=== PATIENT | female | born 1960 | race Caucasian/White ===

== ENCOUNTER 2018-09-26 14:40 | Emergency (ER) | payer SELFPAY ==
[2018-09-26] MEDS ORDERED: Lidocaine 1% (PF) 30 ML VIAL ONE (15:08)
[2018-09-26] MEDS ORDERED: Ketorolac Tromethamine 30 MG/ML VIAL ONE (15:08)
[2018-09-26] MEDS ORDERED: Adacel (T-DAP) 0.5 ML VIAL ONE (15:08)
--- NOTE | 2018-09-26 16:16 | RAD ---
RIGHT HAND THREE VIEWS: 09/26/18 HISTORY: Right hand injury. FINDINGS: Mild diffuse degenerative changes. No aggressive osseous erosions. Extensive soft tissue laceration a nd moderate amount of soft tissue gas are apparent at the webbing between the thumb and index finger. No metallic foreign bodies are apparent. IMPRESSION: Extensive soft tissue laceration. No metallic foreign bodies. POS: [facility]
== END 2018-09-26 16:09 | disposition home or self-care (01) ==
LOC: ERS 14:40
DX: S61.411A Laceration without foreign body of right hand, initial encounter (principal); W26.0XXA Contact with knife, initial encounter
CPT/HCPCS: 12002; 90471; 90715; 96372; J1885; J2001

== ENCOUNTER 2018-11-09 10:47 | Inpatient (IN) | payer SELFPAY ==
[~2018-11-09 10:47] MED LIST: Iopamidol 370 76% 100 ML VIAL ONE
[2018-11-09 12:30] LABS: Hemoglobin 11.1 g/dL (12.0-16.0); Mean Corpuscular HGB CONC 30.9 g/dL (32.0-36.0); Mean Corpuscular Hemoglobin 29.6 pg (27.0-31.0); Mean Corpuscular Volume 95.7 fL (78.0-98.0); Mean Platelet Volume 9.1 fL (7.4-10.4); Platelet Count 245 thou/uL (130-400); RBC Distribution Width 12.6 % (11.5-14.5); Red Blood Cell (RBC) Count 3.76 mill/uL (4.20-5.40); White Blood Cell (WBC) Count 15.9 thou/uL (4.8-10.8)
[2018-11-09 12:45] LABS: ALT (SGPT) 13 U/L (8-55); AST (SGOT) 12 U/L (5-34); Albumin 3.2 g/dL (3.5-5.0); Alkaline Phosphatase 168 U/L (40-150); Anion Gap 15 mmol/L (10-20); BUN (Urea Nitrogen) 13 mg/dL (9.8-20.1); Band 15 % (5-11); Bilirubin, Total 0.3 mg/dL (0.2-1.2); Calc. Creatinine Clearance 0 mL/min (70-130); Calcium 9.2 mg/dL (7.8-10.44); Carbon Dioxide 22 mmol/L (22-29); Chloride 102 mmol/L (98-107); Estimated GFR-MDRD 61; Globulin 4.2 g/dL (2.4-3.5); Glucose 91 mg/dL (70-105); Lipase Less than 4 U/L (8-78); Lymphocytes 6 % (21-51); MDiff Complete? YES; Monocytes 8 % (0-10); Neutrophil 70 % (42-75); Potassium 3.5 mmol/L (3.5-5.1); Protein, Total 7.4 g/dL (6.0-8.3); RBC Morphology Normal; Reactive Lymphocytes 1 % (0-10); Sodium 135 mmol/L (136-145)
[2018-11-09] MEDS ORDERED: Ondansetron PF 4 MG/2 ML Vial ONE (13:27)
[2018-11-09] MEDS ORDERED: Morphine 4 MG/ML VIAL ONE (13:27)
[2018-11-09 13:41] LABS: Bilirubin Small (Negative); Blood, Urine Large (Negative); Clarity CLOUDY (Clear); Glucose, Urine (Dipstick) Negative (Negative); Leukocyte Moderate (Negative); Nitrite Positive (Negative); Protein, Urine (Dipstick) 100 mg/dL (Neg-Trace); Specific Gravity, Urine 1.025 (1.002-1.036); pH, Urine 5.5 (5.0-9.0)
[2018-11-09 13:55] LABS: Bacteria/HPF 2+ HPF (None Seen); Pathc Cast-AUWi Flag 1.01 (0-2.49); Squamous Epithelial 0-3 HPF (0-3)
[2018-11-09] MEDS ORDERED: Acetaminophen 500 MG TAB ONE (13:55)
[2018-11-09 14:04] LABS: Hyaline Casts/LPF 0-3 HYALINE CAST LPF (0-3 Hyaline)
--- NOTE | 2018-11-09 14:29 | ULT ---
ULTRASOUND ABDOMEN LIMITED: (RIGHT UPPER QUADRANT) HISTORY: A 58-year-old female with right upper quadrant abdominal pain. FINDINGS: The gallbladder has normal wall thickness and has no evidence of gallstones or sludge. The hepatic e chogenicity is normal. The right kidney has normal echogenicity and has no hydronephrosis. The panc reas is visualized, although ultrasound is relatively insensitive for pancreatic pathology compared t o CT and MRI. There is no biliary dilation. The common duct caliber is 3 mm. IMPRESSION: Normal. jn [] POS: [facility]
[2018-11-09] MEDS ORDERED: Aztreonam 1 GM in Sodium Chloride 0.9% 100 ML IVPB SCH (14:30)
--- NOTE | 2018-11-09 15:00 | RAD ---
CHEST 1 VIEW: HISTORY: Fever. COMPARISON: Radiograph 03/23/2017. FINDINGS: Abnormal airspace opacity in the left lung base. There is rightward patient rotation. Dorsal column stimulator is seen. IMPRESSION: Left basilar opacity concerning for an infection. Followup after treatment recommended. POS: [facility]
[2018-11-09] MEDS ORDERED: cefTRIAXone\\ROCEPHIN 1 GM VIAL ONE (15:13)
--- NOTE | 2018-11-09 15:19 | CT ---
ABDOMEN CT WITH CONTRAST PELVIC CT WITH CONTRAST: HISTORY: Abdominal pain. Fever. Onset Friday. COMPARISON: None. FINDINGS: ABDOMEN CT: Chronic changes with small blebs in the lung bases. Normal cardiac silhouette. Visualized aorta has the overall normal caliber. O periaortic fat stranding. Unremarkable gallbladder. Portal vein is patent. Caliber is normal. Liver, spleen, pancreas, and adrenal glands are unremarkable. No gastrohepatic, retrocrural, or periportal lymphadenopathy. No mesenteric mass, lymphadenopathy, free air, or free fluid. Limited evaluation of the alimentary canal by the lack of oral contrast. No evidence of bowel obstru ction. Ileocecal junction is normal. Appendix is difficult to appreciate. Nevertheless, no inflamm ation at the cecal apex. Grossly, the colon is unremarkable. There is decreased enhancement involving the mid to lower pole of the right kidney. Correlate for py elonephritis. Bilaterally, no obstructive uropathy. Gallbladder is unremarkable. CT PELVIS: Uterus and adnexal structures are unremarkable. Trace amount of free fluid in the pelvis. No mass, lymphadenopathy, or free air. Unremarkable urinary bladder. Limited evaluation of the pelvis due to artifact from a stimulator generator. There is degenerative change in the lumbosacral junction. IMPRESSION: Decreased enhancement involving the right kidney. Correlate for pyelonephritis. POS: [facility]
[2018-11-09] MEDS ORDERED: Ondansetron PF 4 MG/2 ML Vial IVP PRN (18:24)
[2018-11-09] MEDS ORDERED: Acetaminophen 650 MG Suppository PR PRN (18:24)
[2018-11-09] MEDS ORDERED: HYDROcodone/Acetaminophen 5/325 mg Tablet PO PRN (18:24)
[2018-11-09] MEDS ORDERED: Ondansetron ODT 4 MG TAB PO PRN (18:24)
[2018-11-09] MEDS ORDERED: hydrALAZINE 20 MG/ML VIAL SLOW IVP PRN (18:24)
[2018-11-09 18:41] VITALS: BMI 18.1
[2018-11-09] MEDS: HYDROcodone/Acetaminophen 5/325 mg Tablet PO PRN (21:09)
[2018-11-09] MEDS: Famotidine 20 MG TAB PO SCH (21:10)
[2018-11-09] MEDS: Sodium Chloride 0.9% 1,000 ML IV SCH (21:11)
[2018-11-09] MEDS: Cefepime 2 GM in Sodium Chloride 0.9% 100 ML IVPB SCH (21:11)
[2018-11-09] MEDS: Amitriptyline HCl 100 MG TAB PO SCH (22:02)
[2018-11-10] MEDS: Acetaminophen 325 MG TAB PO PRN ×2 (05:21→15:29)
[2018-11-10] MEDS: Sodium Chloride 0.9% 1,000 ML IV SCH ×3 (05:40→20:21)
[2018-11-10 06:59] LABS: #Eosinphils 0.2 thou/uL (0.0-0.7); #Lymphocytes 1.6 thou/uL (1.20-3.40); #Monocytes 1.2 thou/uL (0.11-0.59); #Neutrophils 9.9 thou/uL (1.40-6.50); %Basophils 0.4 % (0.0-1.0); %Eosinophils 1.4 % (0.0-10.0); %Lymphocytes 12.5 % (21.0-51.0); %Monocytes 9.5 % (0.0-10.0); %Neutrophils 76.3 % (42.0-75.0); Hemoglobin 9.8 g/dL (12.0-16.0); Mean Corpuscular HGB CONC 32.4 g/dL (32.0-36.0); Mean Corpuscular Hemoglobin 31.2 pg (27.0-31.0); Mean Corpuscular Volume 96.3 fL (78.0-98.0); Mean Platelet Volume 8.5 fL (7.4-10.4); Platelet Count 223 thou/uL (130-400); RBC Distribution Width 12.9 % (11.5-14.5); Red Blood Cell (RBC) Count 3.15 mill/uL (4.20-5.40); White Blood Cell (WBC) Count 12.9 thou/uL (4.8-10.8)
[2018-11-10 07:06] LABS: Anion Gap 10 mmol/L (10-20); BUN (Urea Nitrogen) 10 mg/dL (9.8-20.1); Calc. Creatinine Clearance 62 mL/min (70-130); Calcium 8.2 mg/dL (7.8-10.44); Carbon Dioxide 21 mmol/L (22-29); Chloride 109 mmol/L (98-107); Estimated GFR-MDRD 71; Glucose 111 mg/dL (70-105); Magnesium 1.6 mg/dL (1.6-2.6); Potassium 3.1 mmol/L (3.5-5.1); Sodium 137 mmol/L (136-145)
[2018-11-10] MEDS: Cefepime 2 GM in Sodium Chloride 0.9% 100 ML IVPB SCH ×2 (07:59→20:19)
[2018-11-10] MEDS: Famotidine 20 MG TAB PO SCH ×2 (08:00→20:17)
[2018-11-10] MEDS: HYDROcodone/Acetaminophen 5/325 mg Tablet PO PRN ×2 (10:09→20:18)
[2018-11-10] MEDS ORDERED: Magnesium 2 GM/50 ML 2 GM in Premix Bag 1 BAG IVPB SCH (12:30)
[2018-11-10] MEDS: Potassium Chloride 20 MEQ TAB PO SCH ×3 (14:02→20:17)
[2018-11-10] MEDS: Fioricet 325/50/40 mg Tablet PO PRN (17:10)
[2018-11-10] MEDS: Amitriptyline HCl 100 MG TAB PO SCH (20:17)
[2018-11-11] MEDS: Acetaminophen 325 MG TAB PO PRN (05:00)
[2018-11-11] MEDS: Sodium Chloride 0.9% 1,000 ML IV SCH ×2 (05:03→15:17)
[2018-11-11 05:26] LABS: #Basophils 0.1 thou/uL (0.0-0.2); #Eosinphils 0.2 thou/uL (0.0-0.7); #Lymphocytes 1.3 thou/uL (1.20-3.40); #Monocytes 0.7 thou/uL (0.11-0.59); #Neutrophils 6.6 thou/uL (1.40-6.50); %Basophils 0.6 % (0.0-1.0); %Eosinophils 2.5 % (0.0-10.0); %Lymphocytes 14.5 % (21.0-51.0); %Monocytes 8.3 % (0.0-10.0); Hemoglobin 8.9 g/dL (12.0-16.0); Mean Corpuscular HGB CONC 32.7 g/dL (32.0-36.0); Mean Corpuscular Hemoglobin 31.5 pg (27.0-31.0); Mean Corpuscular Volume 96.4 fL (78.0-98.0); Mean Platelet Volume 8.4 fL (7.4-10.4); Platelet Count 227 thou/uL (130-400); RBC Distribution Width 13.2 % (11.5-14.5); Red Blood Cell (RBC) Count 2.82 mill/uL (4.20-5.40); White Blood Cell (WBC) Count 8.9 thou/uL (4.8-10.8)
[2018-11-11 05:36] LABS: Anion Gap 9 mmol/L (10-20); BUN (Urea Nitrogen) 9 mg/dL (9.8-20.1); Calc. Creatinine Clearance 69 mL/min (70-130); Calcium 8.2 mg/dL (7.8-10.44); Carbon Dioxide 20 mmol/L (22-29); Chloride 112 mmol/L (98-107); Estimated GFR-MDRD 80; Glucose 113 mg/dL (70-105); Magnesium 1.7 mg/dL (1.6-2.6); Potassium 4.2 mmol/L (3.5-5.1); Sodium 137 mmol/L (136-145)
[2018-11-11] MEDS: Cefepime 2 GM in Sodium Chloride 0.9% 100 ML IVPB SCH ×2 (08:09→20:06)
[2018-11-11] MEDS: Famotidine 20 MG TAB PO SCH ×2 (08:09→20:07)
--- NOTE | 2018-11-11 08:31 | PDOC.PN ---
- Subjective Encounter Start Date: 11/10/18 Encounter Start Time: 09:30 follow up for pyelo febrile overnight, chills, better this morning, no N/V/d/C, graham abx without itching or rash All systems reviewed and neg x as above - Objective Resuscitation Status - Order Detail: 11/09/18 17:52 Resuscitation Status Routine Resuscitation Status: FULL: Full Resuscitation MAR Reviewed: Yes Vital Signs & Weight: Vital Signs (12 hours) Temp Pulse Resp BP Pulse Ox 11/11/18 04:00 102.2 F H 103 H 20 135/76 92 L 11/11/18 00:00 98.6 F 90 20 140/90 92 L 11/10/18 21:13 94 L Weight Admit Weight 116 lb Weight 116 lb I&O: 11/10/18 11/11/18 11/12/18 06:59 06:59 06:59 Intake Total 2390 Balance 2390 Result Diagrams: 11/11/18 04:49 11/11/18 04:49 Phys Exam - Physical Examination Constitutional: NAD HEENT: PERRLA, moist MMs, sclera anicteric, oral pharynx no lesions Neck: no nodes, no JVD, supple, full ROM Respiratory: no wheezing, no rales, no rhonchi, clear to auscultation bilateral Cardiovascular: RRR, no significant murmur, no rub Gastrointestinal: soft, non-tender, no distention, positive bowel sounds Musculoskeletal: no edema, pulses present Neurological: non-focal, normal sensation, moves all 4 limbs Lymphatic: no nodes Psychiatric: normal affect, A&O x 3 Skin: no rash, normal turgor, cap refill <2 seconds Dx/Plan (1) Pyelonephritis Code(s): N12 - TUBULO-INTERSTITIAL NEPHRITIS, NOT SPCF ACUTE OR CHRONIC Status: Acute (2) Sepsis Code(s): A41.9 - SEPSIS, UNSPECIFIED ORGANISM Status: Acute Qualifiers: Sepsis type: sepsis due to unspecified organism Qualified Code(s): A41.9 - Sepsis, unspecified organism (3) HTN (hypertension) Code(s): I10 - ESSENTIAL (PRIMARY) HYPERTENSION Status: Chronic Qualifiers: Hypertension type: essential hypertension Qualified Code(s): I10 - Essential (primary) hypertension (4) Migraine Code(s): G43.909 - MIGRAINE, UNSP, NOT INTRACTABLE, WITHOUT STATUS MIGRAINOSUS Status: Chronic Qualifiers: Migraine type: unspecified Status migrainosus presence: without status migrainosus Intractability: not intractable Qualified Code(s): G43.909 - Migraine, unspecified, not intractable, without status migrainosus - Plan cont current plan of care, plan discussed w/ family, continue antibiotics, out of bed/ambulate * .
[2018-11-11] MEDS: HYDROcodone/Acetaminophen 5/325 mg Tablet PO PRN ×2 (11:40→20:07)
--- NOTE | 2018-11-11 14:07 | PDOC.PN ---
- Subjective Encounter Start Date: 11/11/18 Encounter Start Time: 09:40 - Objective Resuscitation Status - Order Detail: 11/09/18 17:52 Resuscitation Status Routine Resuscitation Status: FULL: Full Resuscitation MAR Reviewed: Yes Vital Signs & Weight: Vital Signs (12 hours) Temp Pulse Resp BP Pulse Ox 11/11/18 13:38 99.4 F 96 20 134/74 96 11/11/18 08:29 98.6 F 84 20 128/76 92 L 11/11/18 08:00 92 L 11/11/18 04:00 102.2 F H 103 H 20 135/76 92 L Weight Admit Weight 116 lb Weight 116 lb I&O: 11/10/18 11/11/18 11/12/18 06:59 06:59 06:59 Intake Total 2390 720 Balance 2390 720 Result Diagrams: 11/11/18 04:49 11/11/18 04:49 Phys Exam - Physical Examination Constitutional: NAD HEENT: PERRLA, moist MMs, sclera anicteric, oral pharynx no lesions Neck: no nodes, no JVD, supple, full ROM Respiratory: no wheezing, no rales, no rhonchi, clear to auscultation bilateral Cardiovascular: RRR, no significant murmur, no rub Gastrointestinal: soft, non-tender, no distention, positive bowel sounds Musculoskeletal: no edema, pulses present Neurological: non-focal, normal sensation, moves all 4 limbs Lymphatic: no nodes Psychiatric: normal affect, A&O x 3 Skin: no rash, normal turgor, cap refill <2 seconds Dx/Plan (1) Pyelonephritis Code(s): N12 - TUBULO-INTERSTITIAL NEPHRITIS, NOT SPCF ACUTE OR CHRONIC Status: Acute (2) Sepsis Code(s): A41.9 - SEPSIS, UNSPECIFIED ORGANISM Status: Acute Qualifiers: Sepsis type: sepsis due to unspecified organism Qualified Code(s): A41.9 - Sepsis, unspecified organism Comment: resolving (3) HTN (hypertension) Code(s): I10 - ESSENTIAL (PRIMARY) HYPERTENSION Status: Chronic Qualifiers: Hypertension type: essential hypertension Qualified Code(s): I10 - Essential (primary) hypertension (4) Migraine Code(s): G43.909 - MIGRAINE, UNSP, NOT INTRACTABLE, WITHOUT STATUS MIGRAINOSUS Status: Chronic Qualifiers: Migraine type: unspecified Status migrainosus presence: without status migrainosus Intractability: not intractable Qualified Code(s): G43.909 - Migraine, unspecified, not intractable, without status migrainosus - Plan cont current plan of care, 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
--- NOTE | 2018-11-11 15:12 | EKG ---
Test Reason : Blood Pressure : / mmHG Vent. Rate : 102 BPM Atrial Rate : 102 BPM P-R Int : 142 ms QRS Dur : 092 ms QT Int : 346 ms P-R-T Axes : 060 024 041 degrees QTc Int : 450 ms Sinus tachycardia Possible Left atrial enlargement Abnormal ECG Confirmed by KIRAN KIRAN ([id number]), brands editor CARY MUNOZ ([id number] on 11/11/2018 3:12:05 PM Referred By: Confirmed By:KIRAN KIRAN
[2018-11-11] MEDS: Fioricet 325/50/40 mg Tablet PO PRN (15:17)
[2018-11-11] MEDS: Amitriptyline HCl 100 MG TAB PO SCH (20:06)
[2018-11-12] MEDS: Sodium Chloride 0.9% 1,000 ML IV SCH ×2 (03:15→14:19)
[2018-11-12] MEDS: Cefepime 2 GM in Sodium Chloride 0.9% 100 ML IVPB SCH ×2 (08:37→20:07)
[2018-11-12] MEDS: Famotidine 20 MG TAB PO SCH ×2 (08:37→20:07)
[2018-11-12] MEDS: HYDROcodone/Acetaminophen 5/325 mg Tablet PO PRN ×2 (08:39→20:07)
[2018-11-12] MEDS ORDERED: cloNIDine 0.1 MG TAB PO SCH (10:30)
[2018-11-12] MEDS: Fioricet 325/50/40 mg Tablet PO PRN (15:03)
[2018-11-12] MEDS: cloNIDine 0.1 MG TAB PO SCH (20:06)
[2018-11-12] MEDS: Amitriptyline HCl 100 MG TAB PO SCH (20:06)
[2018-11-13] MEDS: Sodium Chloride 0.9% 1,000 ML IV SCH ×2 (00:48→14:06)
[2018-11-13] MEDS: HYDROcodone/Acetaminophen 5/325 mg Tablet PO PRN ×2 (05:31→10:08)
[2018-11-13 08:09] VITALS: BP 181/85; TEMP 98
[2018-11-13] MEDS: cloNIDine 0.1 MG TAB PO SCH (09:12)
[2018-11-13] MEDS: Famotidine 20 MG TAB PO SCH (09:12)
[2018-11-13] MEDS: Cefepime 2 GM in Sodium Chloride 0.9% 100 ML IVPB SCH (10:07)
[2018-11-13] MEDS: Fioricet 325/50/40 mg Tablet PO PRN (13:21)
--- NOTE | 2018-11-16 11:03 | HP ---
PRIMARY CARE PHYSICIAN: [facility]. CHIEF COMPLAINT: Abdominal pain. HISTORY OF PRESENT ILLNESS: Ms. Lagunas is a 58-year-old female with a history of hypertension, migraines, and chronic back pain with nonfunctioning spinal stimulator, presents to emergency department with abdominal pain and fever for the prior couple of days. She is actually seen in my clinic and sent to the emergency department. She was not able to eat much for last 2 days due to pain and nausea. She denies any chills or rigors. No drenching sweats. No diarrhea, constipation, or GI bleeding. No cough or sputum production. Workup in the ER showed temperature 103.2. White count was elevated at 15.9 and pulse rate of 102. She ruled in for sepsis criteria. She was given IV fluids in the ER and started on empiric antibiotics. We were called for admission. She has no other current complaints. PAST MEDICAL HISTORY: 1. Hypertension. 2. Migraine headaches. 3. Chronic back pain. 4. Major depressive disorder. 5. Anxiety. PAST SURGICAL HISTORY: Includes: 1. Appendectomy. 2. Internal stimulator. SOCIAL HISTORY: She lives at home with her family. She drinks socially rarely. She is a former drug user. Did abuse marijuana previously. She currently uses tobacco and smokes cigarettes daily about half a pack per day for about 20 years. FAMILY HISTORY: Negative for clotting or bleeding disorders in family. No immune dysfunction. No new sick contacts. ALLERGIES: NKDA. HOME MEDICATIONS: 1. Amitriptyline 300 mg p.o. at bedtime. 2. Fioricet 2 p.o. q.4 hours p.r.n. 3. Clonidine 0.1 mg p.o. b.i.d. 4. Hydrocodone/acetaminophen 1 p.o. q.4 hours p.r.n. 5. Levofloxacin 500 mg p.o. daily. REVIEW OF SYSTEMS: All systems reviewed and negative except as stated as per HPI. PHYSICAL EXAMINATION: VITAL SIGNS: Temperature initially in the ER 99.9, it is back up to 103.2, pulse 90 up to 102, blood pressure 135/74, respiratory rate 18, and sat 98% on room air. GENERAL: She is well developed, well nourished, age-appropriate appearing female, who appears to be in acute pain. HEENT: Normocephalic and atraumatic. Pupils equal, round, and reactive to light bilaterally. Mucous membranes are tacky, but not dry. She has no evidence of thrush. No mucous membrane lesions. NECK: Supple. No lymphadenopathy. No JVD or thyromegaly. Normal carotid upstroke. I do not appreciate bruits. LUNGS: Clear to auscultation bilaterally. No wheezes. No rales. No rhonchi. Good air movement. Symmetric chest excursion. CARDIOVASCULAR: Normal S1 and S2. No S3 or S4. No audible murmurs. ABDOMEN: Diffusely tender, more in the right upper quadrant than anywhere else. She did have a Acevedo sign. No rebound, rigidity, or guarding. She has normoactive bowel sounds present in all 4 quadrants. EXTREMITIES: Showed no signs of clubbing. No edema. SKIN: Warm, moist, and well perfused. She has no other rashes or lesions. NEUROLOGIC: Cranial nerves 2 through 12 grossly intact. She has no focal neurologic deficits. Normal speech and normal strength. MUSCULOSKELETAL: Normal to inspection. Large joints appear normal. There is no evidence of inflammation or palpable effusions. LABORATORY DATA: CBC on admission 15.9, hemoglobin 11.1, hematocrit 36.0, platelet count is 245,000, with 15% bandemia. CMP shows sodium 135, potassium 3.5, creatinine 0.94, alkaline phosphatase was slightly elevated at 168 and her albumin is slightly low at 3.2. Remainder of the liver function within normal limits. Troponin I was less than 0.010, undetectable. Urinalysis showed greater than 50 white blood cells, no epithelial cells, 2+ bacteria, moderate leuk esterase and positive nitrite. RADIOGRAPHIC STUDIES: CT of the abdomen and pelvis in the emergency department showed possible pyelonephritis of the right kidney with decreased enhancement. ASSESSMENT AND PLAN: 1. Pyelonephritis and upper urinary tract infection. The patient does meet sepsis criteria. She was on broad-spectrum antibiotics. We will continue on cefepime and vancomycin and continue to watch. I will place her in inpatient status. 2. Sepsis, present on admission. The patient does meet criteria. She does not have severe sepsis. We will continue to aggressively hydrate her and control her pain. Continue antibiotics. 3. Essential hypertension. Continue home medications. No history of migraines. We will continue her Fioricet as needed. Job ID: [id number]
--- NOTE | 2018-11-16 11:03 | DIS ---
DATE OF ADMISSION: 11/09/2018 DATE OF DISCHARGE: 11/13/2018 DISCHARGE DIAGNOSES: 1. Acute pyelonephritis of the right kidney. No cultures. 2. Sepsis, present on admission, resolved. 3. Essential hypertension. 4. History of migraine headache. 5. Ongoing tobacco abuse. 6. History of marijuana abuse. CONSULTATIONS: None. PROCEDURES: None. HISTORY AND PHYSICAL: Ms. Lagunas is a 58-year-old female, who presented to the emergency department with abdominal pain, was found to have possible pyelonephritis and reactive urine and met sepsis criteria. She was given broad-spectrum antibiotics and we were called for admission. HOSPITAL COURSE: The patient was seen and examined by me in the emergency department. She was given broad-spectrum antibiotics and narrowed. Cultures were not available and so we treated her empirically. She did improve. Her white blood cell count normal and sepsis resolved. By 11/13, she was comfortable enough to be able to be discharged on home medications. PHYSICAL EXAMINATION: The patient was seen and examined on the day of discharge. Discharge plan and disposition were discussed with the patient [id number] at the bedside. DISCHARGE MEDICATIONS: 1. Amitriptyline 10 mg p.o. at bedtime. 2. Fioricet 2 tabs p.o. q.4 hours p.r.n. 3. Clonidine 0.1 mg p.o. b.i.d. 4. Hydrocodone/acetaminophen 5/325 one p.o. q.4 hours p.r.n. 5. Levofloxacin 500 mg p.o. daily for a total of 14 days. FOLLOWUP APPOINTMENTS: Primary care physician within a week. DISCHARGE CONDITION: Stable. DISPOSITION: Discharged home via private vehicle. DISCHARGE ACTIVITY: Per Cardiopulmonary limits. DISCHARGE DIET: Heart healthy recommended. Job ID: [id number]
== END 2018-11-13 16:10 | disposition home or self-care (01) | DRG 872 ==
LOC: ERS 10:47 → ER/OP 10:47 → T4-A 17:09
PROVIDERS: ADMIT Internal Medicine Infectious Disease; ATTEND Internal Medicine Infectious Disease
DX: A41.9 Sepsis, unspecified organism (principal); N12 Tubulo-interstitial nephritis, not specified as acute or chronic; G43.909 Migraine, unspecified, not intractable, without status migrainosus; I10 Essential (primary) hypertension; Z79.899 Other long term (current) drug therapy; F17.210 Nicotine dependence, cigarettes, uncomplicated; G89.29 Other chronic pain; M54.9 Dorsalgia, unspecified; F41.9 Anxiety disorder, unspecified; F32.9 Major depressive disorder, single episode, unspecified; Z79.1 Long term (current) use of non-steroidal anti-inflammatories (NSAID)
CPT/HCPCS: 36415; 71045; 74177; 76705; 80048; 80053; 81003; 81015; 83690; 83735; 84484; 85025; 93005; 96365; 96367; 96375; J0692; J0696; J2270; J2405; J3490; J7050; Q0162